=== PATIENT | female | born 1945 | race Caucasian/White ===

== ENCOUNTER 2020-02-21 12:08 | Emergency (ER) | payer MEDICARE, BC ==
[2020-02-21 13:20] VITALS: BP 121/67; PULSE 86
--- NOTE | 2020-02-21 15:36 | EDM.PDOC ---
ED HPI GENERAL MEDICAL PROBLEM - General Chief Complaint: Respiratory Problem Stated Complaint: COUGH,DIARRHEA,CHILLS Time Seen by Provider: 02/21/20 13:22 Source of Information: Reports: Patient History Limitations: Reports: No Limitations - History of Present Illness INITIAL COMMENTS - FREE TEXT/NARRATIVE: Patient is a 74 year old female presenting to the ER with c/o cough, nasal congestion, chills, diarrhea, and mild SOB. Her cough and congestion began on Wednesday of last week which is 5 days ago. She developed diarrhea this morning which has since resolved. She also states that she feels mildy SOB with activity which just began today. She has had no known fevers. Denies vomiting, but state that she felt a little nausea this morning. She denies chest pain or dizziness. She denies any underlying respiratory or cardiac history. She has not been using any over the counter medications. - Related Data Allergies Allergy/AdvReac Type Severity Reaction Status Date / Time escitalopram oxalate Allergy Itching Verified 02/21/20 13:17 [From Lexapro] oxycodone Allergy Itching Verified 02/21/20 13:17 Home Meds: Home Meds Omeprazole 1 cap PO DAILY 04/27/14 [History] Pregabalin [Lyrica] 1 tab PO BEDTIME 04/27/14 [History] Simvastatin 1 tab PO DAILY 04/27/14 [History] Benzonatate [Tessalon Perle] 100 mg PO TID PRN #20 capsule 02/21/20 [Rx] traZODone HCl [Trazodone HCl] 50 mg PO 02/21/20 [History] Past Medical History Musculoskeletal History: Reports: Back Pain, Chronic, Fibromyalgia Social & Family History - Tobacco Use Tobacco Use Status *Q: Never Tobacco User ED ROS GENERAL - Review of Systems Review Of Systems: See Below Constitutional: Reports: Chills. Denies: Fever, Weakness HEENT: Reports: Rhinitis, Sinus Problem (congestion). Denies: Vertigo, Vision Change Respiratory: Reports: Shortness of Breath, Cough. Denies: Wheezing, Pleuritic Chest Pain Cardiovascular: Reports: No Symptoms. Denies: Chest Pain, Lightheadedness, Syncope Endocrine: Reports: No Symptoms GI/Abdominal: Reports: Diarrhea, Nausea. Denies: Abdominal Pain, Vomiting : Reports: No Symptoms. Denies: Dysuria, Flank Pain Musculoskeletal: Reports: No Symptoms Skin: Reports: No Symptoms Neurological: Reports: No Symptoms. Denies: Dizziness, Headache Psychiatric: Reports: No Symptoms Hematologic/Lymphatic: Reports: No Symptoms Immunologic: Reports: No Symptoms ED EXAM, GENERAL - Physical Exam Exam: See Below Exam Limited By: No Limitations General Appearance: Alert, WD/WN, No Apparent Distress Respiratory/Chest: No Respiratory Distress, Lungs Clear, Normal Breath Sounds, No Accessory Muscle Use, Chest Non-Tender Cardiovascular: Normal Peripheral Pulses, Regular Rate, Rhythm, No Edema, No Gallop, No JVD, No Murmur, No Rub GI/Abdominal: Normal Bowel Sounds, Soft, Non-Tender, No Organomegaly, No Distention, No Abnormal Bruit, No Mass Neurological: Alert, Oriented, CN II-XII Intact, Normal Cognition, Normal Gait, Normal Reflexes, No Motor/Sensory Deficits Psychiatric: Normal Affect, Normal Mood Skin Exam: Warm, Dry, Intact, Normal Color, No Rash Course - Vital Signs Last Recorded V/S: Last Vital Signs Temp 98.2 F 02/21/20 13:17 Pulse 86 02/21/20 13:17 Resp 16 02/21/20 13:17 BP 121/67 02/21/20 13:17 Pulse Ox 98 02/21/20 13:17 - Orders/Labs/Meds Orders: Active Orders 24 hr Category Date Time Status CORONAVIRUS COVID-19 PCR [facility] Routine Lab 02/21/20 15:10 Ordered - Re-Assessments/Exams Free Text/Narrative Re-Assessment/Exam: Patient is a 74-year-old female presenting to the emergency department with complaints of cough, nasal congestion, short episode of diarrhea this morning which has since resolved, and some mild shortness of breath. Vital signs in triage were stable. Oxygen saturation is 98% on room air. She is afebrile at 98.2. Her exam was grossly unremarkable. Lung sounds are clear. She has no abdominal pain or tenderness. Chest x-ray was completed and found to be normal. There is no signs of pneumonia. Discussed with patient symptomatic treatment. I will send a prescription for Tessalon Perles. We will also Covid test her today. Discussed return precautions. Discharge instructions as documented. Departure - Departure Time of Disposition: 15:50 Disposition: Home, Self-Care 01 Condition: Good Clinical Impression: Viral respiratory illness - Discharge Information *PRESCRIPTION DRUG MONITORING PROGRAM REVIEWED*: No *COPY OF PRESCRIPTION DRUG MONITORING REPORT IN PATIENT CARON: No Prescriptions: Benzonatate [Tessalon Perle] 100 mg PO TID PRN #20 capsule PRN Reason: Cough Instructions: Viral Respiratory Infection, [id number] Referrals: Judie Dixon MD [Primary Care Provider] - Forms: ED Department Discharge Additional Instructions: You were seen in the emergency department today for cough, nasal congestion, and episode of diarrhea, and some mild shortness of breath. Chest x-ray was completed in ER and found to be normal. Your vital signs in ER were stable. Oxygen was 98% on room air which is excellent. You did not have a fever. A Covid test has been completed on you today. Results of this are generally available within 24 to 72 hours. Recommend that you isolate until his results are available. A prescription for Tessalon Perles for cough has been sent to [facility] [place]. Take this medication as prescribed. If your Covid test results do come back positive, I would recommend purchasing a home pulse oximeter to monitor your oxygen saturations at home. If your oxygen is maintaining below 90%, or you experience any other worsening symptoms of concern, you should return to the emergency department for reevaluation. Sepsis Event Note (ED) - Evaluation Sepsis Screening Result: No Definite Risk - Focused Exam Vital Signs: Vital Signs Temp Pulse Resp BP Pulse Ox 02/21/20 13:17 98.2 F 86 16 121/67 98 - My Orders Last 24 Hours: My Active Orders 02/21/20 15:10 CORONAVIRUS COVID-[address] [facility] Routine - Assessment/Plan Last 24 Hours: My Active Orders 02/21/20 15:10 CORONAVIRUS COVID-[address] [facility] Routine
--- NOTE | 2020-02-21 15:45 | CR ---
PROCEDURE INFORMATION: Exam: XR Chest, 1 View Exam date and time: 02/21/2020 1:11 PM Age: 74 years old Clinical indication: Patient HX: Cough since Wednesday, worsened last night TECHNIQUE: Imaging protocol: XR of the chest Views: 1 view. COMPARISON: No relevant prior studies available. FINDINGS: Lungs: Unremarkable. No consolidation. Pleural space: Unremarkable. No pleural effusion. No pneumothorax. Heart/Mediastinum: Unremarkable. No cardiomegaly. Bones/joints: Partially imaged right shoulder arthroplasty. IMPRESSION: No acute process. Thank you for allowing us to participate in the care of your patient. Dictated and Authenticated by: Raul Lopez MD 02/21/2020 3:14 PM Central Time ([place] & [place]) JAGJIT
== END 2020-02-21 16:10 | disposition home or self-care (01) ==
LOC: JD.ED 12:08
DX: J98.8 Other specified respiratory disorders (principal); B97.89 Other viral agents as the cause of diseases classified elsewhere; Z88.8 Allergy status to other drugs, medicaments and biological substances; Z88.5 Allergy status to narcotic agent; Z79.899 Other long term (current) drug therapy; Z20.828 Contact with and (suspected) exposure to other viral communicable diseases
CPT/HCPCS: 71045; 99285; U0002; 99283

== ENCOUNTER → 2020-12-12 | Day surgery (SDC) | payer MEDICARE, BC ==
[2020-12-12] MEDS: Brimonidine 0.2% Ophth Soln 5 ML Bottle EYELF SCH ×2 (13:35→14:19)
[2020-12-12] MEDS: Phenylephrine 2.5% Ophth Soln 2 ML Bot EYELF SCH ×2 (13:39→13:48)
[2020-12-12] MEDS: Tropicamide 1% Ophth Soln 15 ML Bottle EYELF SCH ×2 (13:44→13:54)
== END ==
LOC: JD.SDS 13:19
PROVIDERS: ATTEND Ophthalmology
DX: H26.492 Other secondary cataract, left eye (principal); H25.811 Combined forms of age-related cataract, right eye; H35.373 Puckering of macula, bilateral; H31.092 Other chorioretinal scars, left eye; I10 Essential (primary) hypertension; E78.00 Pure hypercholesterolemia, unspecified; M81.0 Age-related osteoporosis without current pathological fracture; Z96.1 Presence of intraocular lens

== ENCOUNTER 2021-02-17 11:55 | Emergency (ER) | payer MEDICARE, BC ==
[2021-02-17 12:17] VITALS: BP 124/63; PULSE 81
[2021-02-17] MEDS ORDERED: Sodium Chloride 0.9% 10 ML Syringe FLUSH PRN (12:42)
--- NOTE | 2021-02-17 12:47 | EDM.PDOC ---
ED HPI GENERAL MEDICAL PROBLEM - General Chief Complaint: Fever Stated Complaint: DIZZY\WEAKNESS\HEADACHE Time Seen by Provider: 02/17/21 12:32 Source of Information: Reports: Patient, RN Notes Reviewed History Limitations: Reports: No Limitations - History of Present Illness INITIAL COMMENTS - FREE TEXT/NARRATIVE: Patient is a 75-year-old female who presents to the ER for evaluation of her fever, chills, and body aches. States she was seen by her doctor, Dr. Dixon on Wednesday, had a UTI, and was sent home with an antibiotic and prednisone for her cough. She was swabbed for the COVID-19 virus but is unaware of the results. I did call [facility] in [place], and they stated at that time it was negative. Patient states that throughout the weekend she has not seen much s ymptomatic improvement. She has been taking all of the medications as prescribed. States that yesterday, she felt very cold, and had rigors. She does have an elevated temperature of 99.9 F at the time of triage. States that it does not necessarily hurt to pee, but now she is having some upper back/kidney pain as well associated with this. She had an episode of diarrhea this morning. States that she had her Pfizer Covid vaccine series complete at the beginning of this year, and was set to have her third booster here in a short amount of time. Headache Pain Score (Numeric/FACES): 7 - Related Data Allergies Allergy/AdvReac Type Severity Reaction Status Date / Time escitalopram oxalate Allergy Itching Verified 02/17/21 12:17 [From Lexapro] oxycodone Allergy Itching Verified 02/21/20 13:17 Home Meds: Home Meds Omeprazole 1 cap PO DAILY 04/27/14 [History] Pregabalin [Lyrica] 1 tab PO BEDTIME 04/27/14 [History] Simvastatin 1 tab PO DAILY 04/27/14 [History] Benzonatate [Tessalon Perle] 100 mg PO TID PRN #20 capsule 02/21/20 [Rx] traZODone HCl [Trazodone HCl] 50 mg PO 02/21/20 [History] Cefdinir [Omnicef] 300 mg PO BID 7 Days #14 cap 02/17/21 [Rx] Past Medical History Musculoskeletal History: Reports: Back Pain, Chronic, Fibromyalgia ED ROS GENERAL - Review of Systems Review Of Systems: Comprehensive ROS is negative, except as noted in HPI. ED EXAM, SEPSIS - Physical Exam Exam: See Below Exam Limited By: No Limitations General Appearance: Alert, WD/WN, No Apparent Distress Respiratory/Chest: No Respiratory Distress, Lungs Clear, Normal Breath Sounds, No Accessory Muscle Use, Chest Non-Tender Cardiovascular: Normal Peripheral Pulses, Regular Rate, Rhythm, No Edema GI/Abdominal Exam: Normal Bowel Sounds, Soft, Non-Tender, No Distention, No Mass Extremities: Normal Inspection, Normal Capillary Refill Neurological: Alert, Oriented, Normal Cognition, No Motor/Sensory Deficits Psychiatric: Normal Affect, Normal Mood Skin: Warm, Dry, Intact, Normal Color, No Rash Course - Vital Signs Last Recorded V/S: Last Vital Signs Temp 99.9 F 02/17/21 12:12 Pulse 81 02/17/21 12:12 Resp 18 02/17/21 12:12 BP 124/63 02/17/21 12:12 Pulse Ox 97 02/17/21 12:12 - Orders/Labs/Meds Orders: Active Orders 24 hr Category Date Time Status Peripheral IV Care [RC] . DIRECTED Care 02/17/21 12:42 Ordered BLOOD CULTURE [MREF] Stat Lab 02/17/21 12:42 Ordered BLOOD CULTURE [MREF] Stat Lab 02/17/21 12:42 Ordered CORONAVIRUS COVID-19 NARA [MOLEC] Stat Lab 02/17/21 12:45 Received INFLUENZA A+B AG SCREEN [RM] Stat Lab 02/17/21 12:45 Received UA W/MICROSCOPIC [URIN] Stat Lab 02/17/21 12:43 Ordered Sodium Chloride 0.9% [Saline Flush] Med 02/17/21 12:42 Ordered 10 ml FLUSH ASDIRECTED PRN Blood Culture x2 Reflex Set [OM.PC] Stat Oth 02/17/21 12:42 Ordered Peripheral IV Insertion Adult [OM.PC] Routine Oth 02/17/21 12:42 Ordered Medication Orders Sodium Chloride (Sodium Chloride 0.9% 10 Ml Syringe) 10 ml FLUSH ASDIRECTED PRN PRN Reason: Keep Vein Open Labs: Laboratory Tests 02/17/21 02/17/21 02/17/21 Range/Units 12:55 12:55 12:55 WBC 11.59 H (3.98-10.04) K/mm3 RBC 3.93 L (3.98-5.22) M/mm3 Hgb 12.4 (11.2-15.7) gm/dl Hct 37.8 (34.1-44.9) % MCV 96.2 H (79.4-94.8) fl MCH 31.6 (25.6-32.2) pg MCHC 32.8 (32.2-35.5) g/dl RDW Std Deviation 46.0 (36.4-46.3) fL Plt Count 224 (182-369) K/mm3 MPV 10.7 (9.4-12.3) fl Neut % (Auto) 87.7 H (34.0-71.1) % Lymph % (Auto) 5.2 L (19.3-51.7) % [place] % (Auto) 6.5 (4.7-12.5) % Eos % (Auto) 0.2 L (0.7-5.8) Baso % (Auto) 0.2 (0.1-1.2) % Neut # (Auto) 10.18 H (1.56-6.13) K/mm3 Lymph # (Auto) 0.60 L (1.18-3.74) K/mm3 [place] # (Auto) 0.75 H (0.24-0.36) K/mm3 Eos # (Auto) 0.02 L (0.04-0.36) K/mm3 Baso # (Auto) 0.02 (0.01-0.08) K/mm3 Sodium 141 (136-145) mEq/L Potassium 4.1 (3.5-5.1) mEq/L Chloride 106 (98-107) mEq/L Carbon Dioxide 27 (21-32) mEq/L Anion Gap 12.1 (5-15) BUN 13 (7-18) mg/dL Creatinine 0.8 (0.55-1.02) mg/dL Est Cr Clr Drug Dosing 48.06 mL/min Estimated GFR (MDRD) > 60 (>60) mL/min BUN/Creatinine Ratio 16.3 (14-18) Glucose 122 H (70-99) mg/dL Lactic Acid (0.4-2.0) mmol/L Calcium 8.9 (8.5-10.1) mg/dL Magnesium 2.1 (1.8-2.4) mg/dL Total Bilirubin 0.6 (0.2-1.0) mg/dL AST 15 (15-37) U/L ALT 23 (14-59) U/L Alkaline Phosphatase 57 (46-116) U/L C-Reactive Protein 2.2 H* (<1.0) mg/dL Total Protein 7.0 (6.4-8.2) g/dl Albumin 3.8 (3.4-5.0) g/dl Globulin 3.2 gm/dL Albumin/Globulin Ratio 1.2 (1-2) Urine Color (Yellow) Urine Appearance (Clear) Urine pH (5.0-8.0) Ur Specific Gary (1.005-1.030) Urine Protein (Negative) Urine Glucose (UA) (Negative) Urine Ketones (Negative) Urine Occult Blood (Negative) Urine Nitrite (Negative) Urine Bilirubin (Negative) Urine Urobilinogen (0.2-1.0) Ur Leukocyte Esterase (Negative) 02/17/21 02/17/21 Range/Units 12:55 13:05 WBC (3.98-10.04) K/mm3 RBC (3.98-5.22) M/mm3 Hgb (11.2-15.7) gm/dl Hct (34.1-44.9) % MCV (79.4-94.8) fl MCH (25.6-32.2) pg MCHC (32.2-35.5) g/dl RDW Std Deviation (36.4-46.3) fL Plt Count (182-369) K/mm3 MPV (9.4-12.3) fl Neut % (Auto) (34.0-71.1) % Lymph % (Auto) (19.3-51.7) % [place] % (Auto) (4.7-12.5) % Eos % (Auto) (0.7-5.8) Baso % (Auto) (0.1-1.2) % Neut # (Auto) (1.56-6.13) K/mm3 Lymph # (Auto) (1.18-3.74) K/mm3 [place] # (Auto) (0.24-0.36) K/mm3 Eos # (Auto) (0.04-0.36) K/mm3 Baso # (Auto) (0.01-0.08) K/mm3 Sodium (136-145) mEq/L Potassium (3.5-5.1) mEq/L Chloride (98-107) mEq/L Carbon Dioxide (21-32) mEq/L Anion Gap (5-15) BUN (7-18) mg/dL Creatinine (0.55-1.02) mg/dL Est Cr Clr Drug Dosing mL/min Estimated GFR (MDRD) (>60) mL/min BUN/Creatinine Ratio (14-18) Glucose (70-99) mg/dL Lactic Acid 1.4 (0.4-2.0) mmol/L Calcium (8.5-10.1) mg/dL Magnesium (1.8-2.4) mg/dL Total Bilirubin (0.2-1.0) mg/dL AST (15-37) U/L ALT (14-59) U/L Alkaline Phosphatase (46-116) U/L C-Reactive Protein (<1.0) mg/dL Total Protein (6.4-8.2) g/dl Albumin (3.4-5.0) g/dl Globulin gm/dL Albumin/Globulin Ratio (1-2) Urine Color Yellow (Yellow) Urine Appearance Clear (Clear) Urine pH 7.0 (5.0-8.0) Ur Specific Gary 1.015 (1.005-1.030) Urine Protein Negative (Negative) Urine Glucose (UA) Negative (Negative) Urine Ketones 1+ H (Negative) Urine Occult Blood Trace-intact H (Negative) Urine Nitrite Negative (Negative) Urine Bilirubin Negative (Negative) Urine Urobilinogen 0.2 (0.2-1.0) Ur Leukocyte Esterase Negative (Negative) Meds: Medications Generic Name Dose Route Start Last Admin Trade Name Freq PRN Reason Stop Dose Admin Sodium Chloride 10 ml 02/17/21 12:42 Sodium Chloride 0.9% 10 Ml Syringe FLUSH ASDIRECTED PRN Keep Vein Open - Re-Assessments/Exams Free Text/Narrative Re-Assessment/Exam: 02/17/21 12:46 Patient presents to the ER for evaluation of her ongoing fever/cough/body aches. We will go ahead and get IV established, check some labs, get another urinalysis for evaluation, do a repeat COVID-19 swab, and a chest x-ray. 02/17/21 13:12 We did call the patient's pharmacy, and they did indicate that the patient filled the prescription for Macrobid 100 mg twice daily for 10 days. This was filled on 02/14/2021. 02/17/21 14:38 Was made aware by nursing staff, that the patient's COVID-19 swab did come back invalid twice. I will have her try to repeat the swab for ongoing investigation. Patient's white count is elevated, CRP is slightly elevated at 2.2. Likely she has ongoing kidney issues, due to UTI as well. We will go ahead and give her 2 g Rocephin in the meantime and have her switch from Macrobid to Omnicef. Departure - Departure Time of Disposition: 16:00 Disposition: Home, Self-Care 01 Condition: Good Clinical Impression: Pyelonephritis - Discharge Information *PRESCRIPTION DRUG MONITORING PROGRAM REVIEWED*: No *COPY OF PRESCRIPTION DRUG MONITORING REPORT IN PATIENT CARON: No Instructions: Pyelonephritis, Adult, [id number] Referrals: Judie Dixon MD [Primary Care Provider] - Forms: ED Department Discharge Additional Instructions: You have been evaluated in the ED for fever and chills. You had some basic labs taken at today's visit along with a COVID-19 swab. COVID-19 swab was negative for second time. It is likely that the medicine you are placed on for urinary tract infection on Wednesday has not been entirely effective and you have ongoing UTI/kidney issues resulting from this. You were given IV antibiotics in the ER for this. And have been started on outpatient antibiotic therapy. Your urine was sent for culture, and you will be notified if you should need a change in your antibiotic. This may take up to 48 hours to result. You have been given a prescription for Omnicef (cefdinir), 300 mg 1 tablet 2 times a day for 7 days. Please note that the antibiotics can take up to 48 hours to start working. You can start taking this medication as early as tomorrow morning as prescribed. This medication was electronically sent to the [facility] located near [facility]. Please increase your oral fluid intake and try to stay adequately hydrated. Please return to the ED if your symptoms change or worsen. Sepsis Event Note (ED) - Evaluation Sepsis Screening Result: No Definite Risk - Focused Exam Vital Signs: Vital Signs Temp Pulse Resp BP Pulse Ox 02/17/21 12:12 99.9 F 81 18 124/63 97 - My Orders Last 24 Hours: My Active Orders 02/17/21 12:42 Peripheral IV Care [RC] . DIRECTED BLOOD CULTURE [MREF] Stat BLOOD CULTURE [MREF] Stat Sodium Chloride 0.9% [Saline Flush] 10 ml FLUSH ASDIRECTED PRN Blood Culture x2 Reflex Set [OM.PC] Stat Peripheral IV Insertion Adult [OM.PC] Routine 02/17/21 12:43 UA W/MICROSCOPIC [URIN] Stat 02/17/21 12:45 CORONAVIRUS COVID-19 NARA [MOLEC] Stat INFLUENZA A+B AG SCREEN [RM] Stat - Assessment/Plan Last 24 Hours: My Active Orders 02/17/21 12:42 Peripheral IV Care [RC] . DIRECTED BLOOD CULTURE [MREF] Stat BLOOD CULTURE [MREF] Stat Sodium Chloride 0.9% [Saline Flush] 10 ml FLUSH ASDIRECTED PRN Blood Culture x2 Reflex Set [OM.PC] Stat Peripheral IV Insertion Adult [OM.PC] Routine 02/17/21 12:43 UA W/MICROSCOPIC [URIN] Stat 02/17/21 12:45 CORONAVIRUS COVID-19 NARA [MOLEC] Stat INFLUENZA A+B AG SCREEN [RM] Stat
--- NOTE | 2021-02-17 13:43 | CR ---
Chest: Portable view of the chest was obtained. Comparison: No prior chest imaging is available. Heart size and mediastinum are within normal limits. Mild scoliosis is noted within the spine. Right shoulder prosthesis is seen. Lungs are clear with no acute parenchymal change. Impression: 1. Findings as noted above. Nothing acute is seen. Diagnostic code #2
[2021-02-17] MEDS ORDERED: cefTRIAXone 2 GM in Sodium Chloride 0.9% 100 ML IV ONE (14:39)
== END 2021-02-17 16:10 | disposition home or self-care (01) ==
LOC: JD.ED 11:55
DX: N12 Tubulo-interstitial nephritis, not specified as acute or chronic (principal); Z88.5 Allergy status to narcotic agent; Z88.8 Allergy status to other drugs, medicaments and biological substances; Z79.899 Other long term (current) drug therapy; Z20.822 Contact with and (suspected) exposure to COVID-19
CPT/HCPCS: 36415; 71045; 71045-26; 80053; 81001; 83605; 83735; 85025; 86140; 87040; 87086; 87804; 96365; 99283; 99284-25; J0696; U0002

== ENCOUNTER 2021-02-20 16:44 | Emergency (ER) | payer MEDICARE, BC ==
[2021-02-20 17:12] VITALS: BP 123/72; PULSE 82
[2021-02-20] MEDS ORDERED: diphenhydrAMINE 50 MG Cap PO ONE (17:36)
[2021-02-20] MEDS ORDERED: Famotidine 20 MG Tab PO ONE (17:36)
--- NOTE | 2021-02-20 17:55 | EDM.PDOC ---
ED HPI GENERAL MEDICAL PROBLEM - General Chief Complaint: General Stated Complaint: SWELLING ALL OVER Time Seen by Provider: 02/20/21 17:05 Source of Information: Reports: Patient History Limitations: Reports: No Limitations - History of Present Illness INITIAL COMMENTS - FREE TEXT/NARRATIVE: 75-year-old female presents the emergency department today with complaints that she woke this morning and her entire face felt like it was burning. She states she had swelling noted under her eyes, swelling noted just above her top lip and on the external area of her bilateral nares. She notes that blisters even formed on her top lip. She states that throughout the day today she put cold compresses on her face and it did help to decrease the swelling. She states that starting this evening her face feels like it is beginning to burn and hurt again and now has pain noted in her mouth and on the right side of her throat. She also has some shortness of breath. Face/Facial Pain Score (Numeric/FACES): 7 Throat Pain Score (Numeric/FACES): 4 - Related Data Allergies Allergy/AdvReac Type Severity Reaction Status Date / Time escitalopram oxalate Allergy Itching Verified 02/20/21 17:12 [From Lexapro] oxycodone Allergy Itching Verified 02/20/21 17:12 Home Meds: Home Meds Omeprazole 1 cap PO DAILY 04/27/14 [History] Pregabalin [Lyrica] 1 tab PO BEDTIME 04/27/14 [History] Simvastatin 1 tab PO DAILY 04/27/14 [History] Benzonatate [Tessalon Perle] 100 mg PO TID PRN #20 capsule 02/21/20 [Rx] traZODone HCl [Trazodone HCl] 50 mg PO BEDTIME PRN 02/21/20 [History] Cefdinir [Omnicef] 300 mg PO BID 7 Days #14 cap 02/17/21 [Rx] Famotidine [Pepcid] 20 mg PO DAILY #10 tab 02/20/21 [Rx] Past Medical History HEENT History: Reports: Impaired Vision Other HEENT History: wears eyeglasses. 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 Respiratory History: Reports: Pneumonia, Recurrent Gastrointestinal History: Reports: GERD Genitourinary History: Reports: Pyelonephritis, UTI, Recurrent REHABILITATION NURSE History: Reports: Musculoskeletal History: Reports: Back Pain, Chronic, Fracture, Fibromyalgia Psychiatric History: Reports: Anxiety, Other (See Below) Other Psychiatric History: severe insomnia Hematologic History: Reports: Blood Transfusion(s) Oncologic (Cancer) History: Reports: Basal Cell Carcinoma - Infectious Disease History Infectious Disease History: Reports: Measles, Mumps - Past Surgical History GI Surgical History: Reports: Cholecystectomy, Colonoscopy Female Surgical History: Reports: Hysterectomy Musculoskeletal Surgical History: Reports: Knee Replacement, Shoulder Replacement Dermatological Surgical History: Reports: Plastic Surgical Reconstruction/Repair Social & Family History - Family History Family Medical History: No Pertinent Family History - Tobacco Use Tobacco Use Status *Q: Never Tobacco User Second Hand Smoke Exposure: No - Caffeine Use Caffeine Use: Reports: Coffee - Recreational Drug Use Recreational Drug Use: No ED ROS GENERAL - Review of Systems Review Of Systems: Comprehensive ROS is negative, except as noted in HPI. ED EXAM, GENERAL - Physical Exam Exam: See Below Exam Limited By: No Limitations General Appearance: Alert, WD/WN, Mild Distress Ears: Normal External Exam, Hearing Grossly Normal Nose: Other (Erythema and excoriation noted to bilateral external nares) Throat/Mouth: Normal Teeth, Normal Oropharynx, Normal Voice, No Airway Compromise, Inflammation (Along area of upper lip to the nose). No: Normal Lips (Lips do appear to be excoriated and red) Head: Atraumatic, Normocephalic Neck: Normal Inspection, Supple Respiratory/Chest: No Respiratory Distress, Lungs Clear, Normal Breath Sounds, No Accessory Muscle Use, Chest Non-Tender Cardiovascular: Normal Peripheral Pulses, Regular Rate, Rhythm, No Edema, No Murmur GI/Abdominal: Normal Bowel Sounds, Soft, Non-Tender, No Distention (Female) Exam: Deferred Rectal (Female) Exam: Deferred Back Exam: Normal Inspection Extremities: Normal Inspection, No Pedal Edema Neurological: Alert, Oriented, Normal Cognition Psychiatric: Normal Affect, Normal Mood Skin Exam: Warm, Dry, Intact, Normal Color, No Rash Lymphatic: No Adenopathy Course - Vital Signs Text/Narrative:: As stated above patient presents with facial swelling, and blisters noted along upper lip. Patient states that she was seen in this emergency department on Wednesday and prior to that was being treated with an antibiotic for UTI. She states that on Wednesday during her ER visit her antibiotic was changed from Macrobid to Omnicef to treat a UTI. Physical exam reveals redness and swelling noted to the area from the upper lip to the nose. She does have redness and excoriation noted to the bilateral external nares area. I do not appreciate any redness or swelling anywhere else on the face at this time. Patient states that her mouth is sore I do not appreciate any erythema or edema noted to her mucous membranes or her throat. Physical exam otherwise is unremarkable. Patient will receive Benadryl and Pepcid. Did review the patient's lab studies and urine and blood cultures that were collected on her last ER visit. Urinalysis was essentially unremarkable and urine cultures and blood cultures did show no growth. Patient will be instructed to discontinue her oral antibiotic and list it as an allergy on her allergy list. Will monitor the patient for some time in the emergency department to be sure she does not have worsening allergic type reaction. Last Recorded V/S: Last Vital Signs Temp 96.8 F L 02/20/21 17:00 Pulse 82 02/20/21 17:00 Resp 12 02/20/21 17:00 BP 123/72 02/20/21 17:00 Pulse Ox 95 02/20/21 17:00 - Orders/Labs/Meds Meds: Medications Discontinued Medications Generic Name Dose Route Start Last Admin Trade Name Eduin PRN Reason Stop Dose Admin Diphenhydramine HCl 50 mg 02/20/21 17:36 02/20/21 17:48 Diphenhydramine 50 Mg Cap PO 02/20/21 17:37 50 mg ONETIME ONE Administration Famotidine 20 mg 02/20/21 17:36 02/20/21 17:48 Famotidine 20 Mg Tab PO 02/20/21 17:37 20 mg ONETIME ONE Administration - Re-Assessments/Exams Free Text/Narrative Re-Assessment/Exam: 02/20/21 19:06 Patient states after receiving Benadryl and Pepcid she has decreased burning noted to her face. Was going to order prednisone for the patient however she states she is currently taking a tapering dose of prednisone. She states that for the next 3 days she is to take 20 mg twice daily and then decrease to 20 mg daily for 3 days after that. This should be sufficient. She will be discharged home with recommendations that she take Benadryl 50 mg every 6 hours for the next 48 hours and Pepcid daily for the next 10 days. Patient verbalizes understanding. Departure - Departure Time of Disposition: 19:07 Disposition: Home, Self-Care 01 Condition: Good Clinical Impression: Drug-induced hypersensitivity reaction Qualifiers: Encounter type: initial encounter Qualified Code(s): T78.40XA - Allergy, unspecified, initial encounter - Discharge Information Prescriptions: Famotidine [Pepcid] 20 mg PO DAILY #10 tab Referrals: Judie Dixon MD [Primary Care Provider] - Forms: ED Department Discharge Additional Instructions: You were seen in the emergency department today with complaints of facial swelling and burning as well as sore throat and a sensation of difficulty breathing. The antibiotic that you are taking called Omnicef is likely the cause of this reaction. Stop taking the medication and always listed as an allergy on your medication list. While in the emergency department you were given Benadryl and Pepcid for allergic reaction. You did state that this seemed to help. You reported that you are currently taking prednisone tapering dose. Continue to take this as prescribed as this will help with the allergic response. Recommend that you take Benadryl 50 mg every 6 hours for the next 48 hours. And then take it as needed thereafter. You also need to take a medication called Pepcid 20 mg daily. I have sent a prescription for this medication to your pharmacy. May apply bacitracin ointment to the area of irritation around your nose and lips. Should your condition worsen or change, do not hesitate returning to the emergency department. Sepsis Event Note (ED) - Focused Exam Vital Signs: Vital Signs Temp Pulse Resp BP Pulse Ox 02/20/21 17:00 96.8 F L 82 12 123/72 95
== END 2021-02-20 19:30 | disposition home or self-care (01) ==
LOC: JD.ED 16:44
DX: R22.0 Localized swelling, mass and lump, head (principal); T36.1X5A Adverse effect of cephalosporins and other beta-lactam antibiotics, initial encounter; K21.9 Gastro-esophageal reflux disease without esophagitis; E78.00 Pure hypercholesterolemia, unspecified; Z79.899 Other long term (current) drug therapy; Z88.5 Allergy status to narcotic agent; Z88.8 Allergy status to other drugs, medicaments and biological substances
CPT/HCPCS: 99283; A9270; Q0163

== ENCOUNTER 2021-07-23 09:30 | Day surgery (SDC) | payer MEDICARE, BC ==
[~2021-07-23 09:30] MED LIST: Lactated Ringers 1,000 ML IV SCH; Lidocaine 1%/Sod Bicarbonate in NS 8.4% 1 ML Syringe IDERM PRN; Sodium Chloride 0.9% 10 ML Syringe FLUSH PRN; Sodium Chloride 0.9% 10 ML Syringe FLUSH SCH
[2021-07-23] MEDS ORDERED: Lidocaine 1% 4 ML ONE (10:36)
[2021-07-23] MEDS ORDERED: Propofol 200 MG/20 ML SDV ONE ×2 (10:36→11:37)
[2021-07-23] MEDS ORDERED: Bupivacaine 0.5%/EPINEPHrine 1:200,000 50 ML MDV ONE (10:38)
[2021-07-23] MEDS ORDERED: Bupivacaine 0.5% 30 ML SDV ONE (11:10)
[2021-07-23] MEDS ORDERED: fentaNYL 100 MCG/2 ML SDV ONE (11:33)
[2021-07-23 13:02] VITALS: BP 108/58; PULSE 73
== END 2021-07-23 12:49 | disposition home or self-care (01) ==
LOC: JD.SDS 09:30
PROVIDERS: ATTEND Surgery
DX: Z12.11 Encounter for screening for malignant neoplasm of colon (principal); K63.5 Polyp of colon; K62.1 Rectal polyp; K57.30 Diverticulosis of large intestine without perforation or abscess without bleeding; K63.89 Other specified diseases of intestine; K64.8 Other hemorrhoids; K64.4 Residual hemorrhoidal skin tags; J44.9 Chronic obstructive pulmonary disease, unspecified; E78.5 Hyperlipidemia, unspecified; I10 Essential (primary) hypertension; F32.A Depression, unspecified; Z80.0 Family history of malignant neoplasm of digestive organs; Z98.890 Other specified postprocedural states; Z79.899 Other long term (current) drug therapy; Z88.8 Allergy status to other drugs, medicaments and biological substances; Z88.5 Allergy status to narcotic agent; Z87.891 Personal history of nicotine dependence
CPT/HCPCS: 45380; 46221; 88305; J2704; J3010; J3490; J7120; 00812; 99100

== ENCOUNTER 2022-02-05 08:32 | Day surgery (SDC) | payer MEDICARE, BC, MEDICAID ==
[~2022-02-05 08:32] MED LIST changes: +Cefuroxime 10 MG/ML SYRINGE EYERT SCH; -Lactated Ringers 1,000 ML IV SCH; +Lidocaine 1% PF 2 ML SDV INJECT SCH; -Lidocaine 1%/Sod Bicarbonate in NS 8.4% 1 ML Syringe IDERM PRN; +Pilocarpine 4% Ophth Soln 15 ML Bot EYERT SCH; -Sodium Chloride 0.9% 10 ML Syringe FLUSH PRN; -Sodium Chloride 0.9% 10 ML Syringe FLUSH SCH
[2022-02-05] MEDS: Polymyxin B/Trimethoprim 10 ML Bottle EYERT SCH ×3 (09:04→10:37)
[2022-02-05] MEDS: Brimonidine 0.2% Ophth Soln 5 ML Bottle EYERT SCH ×3 (09:09→10:37)
[2022-02-05] MEDS: Phenylephrine 2.5% Ophth Soln 2 ML Bot EYERT SCH ×5 (09:14→10:15)
[2022-02-05] MEDS: Tropicamide 1% Ophth Soln 15 ML Bottle EYERT SCH ×4 (09:19→09:59)
[2022-02-05] MEDS: Tetracaine HCl/PF 0.5% 4 ML Bottle EYEBOTH SCH ×4 (10:05→10:22)
[2022-02-05 10:55] VITALS: BP 115/45; PULSE 61
== END 2022-02-05 10:47 | disposition home or self-care (01) ==
LOC: JD.SDS 08:32
PROVIDERS: ATTEND Ophthalmology
DX: H25.811 Combined forms of age-related cataract, right eye (principal); H35.363 Drusen (degenerative) of macula, bilateral; H35.372 Puckering of macula, left eye; H31.012 Macula scars of posterior pole (postinflammatory) (post-traumatic), left eye; H16.103 Unspecified superficial keratitis, bilateral; H16.223 Keratoconjunctivitis sicca, not specified as Sjogren's, bilateral; H31.092 Other chorioretinal scars, left eye; I10 Essential (primary) hypertension; E78.00 Pure hypercholesterolemia, unspecified; M81.0 Age-related osteoporosis without current pathological fracture; J44.9 Chronic obstructive pulmonary disease, unspecified; K21.9 Gastro-esophageal reflux disease without esophagitis; I34.0 Nonrheumatic mitral (valve) insufficiency; F41.9 Anxiety disorder, unspecified; F32.A Depression, unspecified; Z90.710 Acquired absence of both cervix and uterus; Z98.890 Other specified postprocedural states; Z96.1 Presence of intraocular lens; Z88.1 Allergy status to other antibiotic agents; Z88.5 Allergy status to narcotic agent; Z90.49 Acquired absence of other specified parts of digestive tract; Z96.659 Presence of unspecified artificial knee joint; Z96.619 Presence of unspecified artificial shoulder joint; Z79.899 Other long term (current) drug therapy
CPT/HCPCS: 66984; J0697; C1780

== ENCOUNTER 2022-06-02 05:19 | Emergency (ER) | payer MEDICARE, BC, MEDICAID ==
[2022-06-02 05:35] VITALS: BP 112/53; PULSE 78
[2022-06-02] MEDS ORDERED: Sodium Chloride 0.9% 1,000 ML IV STA (05:43)
[2022-06-02] MEDS ORDERED: Ondansetron 4 MG/2 ML SDV IVPUSH ONE (05:43)
[2022-06-02] MEDS ORDERED: Sodium Chloride 0.9% 10 ML Syringe FLUSH PRN (05:43)
[2022-06-02] MEDS ORDERED: HYDROmorphone 0.5 MG/0.5 ML Syringe IVPUSH ONE (05:45)
[2022-06-02] MEDS ORDERED: Iopamidol 612 MG/ML 100 ML Bottle IVPUSH ONE (06:46)
== END 2022-06-02 07:45 | disposition home or self-care (01) ==
LOC: JD.ED 05:19
DX: A08.4 Viral intestinal infection, unspecified (principal); E87.6 Hypokalemia; J44.9 Chronic obstructive pulmonary disease, unspecified; E78.00 Pure hypercholesterolemia, unspecified; K21.9 Gastro-esophageal reflux disease without esophagitis; Z88.1 Allergy status to other antibiotic agents; Z88.5 Allergy status to narcotic agent; Z88.8 Allergy status to other drugs, medicaments and biological substances; Z79.899 Other long term (current) drug therapy; Z90.49 Acquired absence of other specified parts of digestive tract; Z90.710 Acquired absence of both cervix and uterus
CPT/HCPCS: 36415; 74177; 80053; 83690; 85025; 96361; 96374; 96375; 99284; J1170; J2405; J3490; J7030; Q9967

== ENCOUNTER 2023-05-14 14:47 | Emergency (ER) | payer MEDICARE, BC, MEDICAID ==
[2023-05-14] MEDS ORDERED: Sodium Chloride 0.9% 10 ML Syringe FLUSH PRN (14:59)
[2023-05-14 16:01] LABS: BASOPHILS PERCENT AUTO 0.2 % (0.0-1.0); HEMATOCRIT 36.3 % (37.0-47.0); IMMATURE GRAN ABSOLUTE AUTO 0.13 K/mm3 (0.00-0.05); IMMATURE GRAN PERCENT AUTO 0.7 % (0.0-0.4); LYMPHOCYTES ABSOLUTE AUTO 0.5 K/mm3 (1.0-4.8); LYMPHOCYTES PERCENT AUTO 2.5 % (24.0-44.0); MEAN CORPUSCULAR HEMOGLOBIN 31.3 pg (28.0-32.0); MEAN CORPUSCULAR HGB CONC 33.1 g/dl (32.0-36.0); MEAN CORPUSCULAR VOLUME 94.5 fl (83.0-99.0); MEAN PLATELET VOLUME 10.7 fl (9.4-12.3); MONOCYTES ABSOLUTE AUTO 0.8 K/mm3 (0.0-0.8); MONOCYTES PERCENT AUTO 4.5 % (0.0-8.0); NEUTROPHILS ABSOLUTE AUTO 16.4 K/mm3 (1.8-7.7); NEUTROPHILS PERCENT AUTO 92.1 % (41.0-71.0); PLATELET COUNT,PLT 192 K/mm3 (150-400); RED BLOOD CELL COUNT 3.84 M/mm3 (4.10-5.30); WHITE BLOOD CELL COUNT,WBC 17.84 K/mm3 (3.9-11.3)
[2023-05-14 16:20] LABS: APPEARANCE,URINE SLT CLOUDY (Clear); BILIRUBIN,URINE 1+ (Negative); COLOR,URINE AMBER (Yellow); GLUCOSE,URINE NEGATIVE (Negative); KETONES,URINE 1+ (Negative); LEUKOCYTE ESTERASE,URINE NEGATIVE (Negative); NITRITE,URINE NEGATIVE (Negative); OCCULT BLOOD,URINE 2+ (Negative); PROTEIN,URINE 2+ (Negative); UROBILINOGEN,URINE 0.2 (0.2-1.0)
[2023-05-14 16:33] LABS: CORONAVIRUS COVID-19 NAA POSITIVE (NEGATIVE); INFLUENZA A NAA NEGATIVE (NEGATIVE); RESPIRATORY SYNCYTIAL VIR NAA NEGATIVE (NEGATIVE)
[2023-05-14 16:45] LABS: A/G RATIO 0.9 (1-2); ALBUMIN 3.2 g/dl (3.4-5.0); ANION GAP 15.7 (5-15); BILIRUBIN TOTAL 0.7 mg/dL (0.2-1.0); BUN/CREATININE RATIO 18.8 (14-18); CALCIUM 8.5 mg/dL (8.5-10.1); CREATININE 0.8 mg/dL (0.55-1.02); EST CRCL DRUG DOSING (CG) 44.4 mL/min; POTASSIUM,K 3.7 mEq/L (3.5-5.1); PROTEIN TOTAL,TP 6.8 g/dl (6.4-8.2)
[2023-05-14 16:48] LABS: BACTERIA,URINE MODERATE /hpf (FEW); MUCUS,URINE MODERATE /hpf (FEW)
[2023-05-14 17:30] VITALS: BP 100/52; PULSE 73
== END 2023-05-14 17:29 | disposition home or self-care (01) ==
LOC: JD.ED 14:47
DX: U07.1 COVID-19 (principal); J44.9 Chronic obstructive pulmonary disease, unspecified; K21.9 Gastro-esophageal reflux disease without esophagitis; Z88.8 Allergy status to other drugs, medicaments and biological substances; Z79.899 Other long term (current) drug therapy; Z90.49 Acquired absence of other specified parts of digestive tract; Z90.710 Acquired absence of both cervix and uterus
CPT/HCPCS: 0241U; 36415; 80053; 81001; 83735; 84484; 85025; 93005; 93010; 99282; 99285; J3490